=== PATIENT | male | born 1950 | race Caucasian/White ===

== ENCOUNTER 2016-09-22 20:03 | Emergency (ER) | payer BC ==
[~2016-09-22] VITALS: Ht 177.8 cm; Wt 80.0 kg
[~2016-09-22 20:03] MED LIST: FOSI20TA PO; LEVA500T PO; LOVA40TA PO; METR-1 PO
[2016-09-22 20:17] VITALS: BP 117/64; PULSE 77; RESP 16; TEMP 99.1; O2SAT 98
[2016-09-22 20:32] VITALS: BP 117/64; PULSE 77; RESP 18; TEMP 99.1; O2SAT 98
[2016-09-22] MEDS ORDERED: SODIUM CHLORIDE 0.9% FLUSH 10 ML FLUSH IV FLUSH PRN (21:15)
[2016-09-22] MEDS ORDERED: ONDANSETRON HCL 4 MG/2 ML VIAL IVP ONE (21:15)
[2016-09-22 21:24] LABS: AUTOMATED NEUTROPHIL # 6.2 TH/MM3 (1.8-7.7); BASOPHIL % 0.4 % (0.0-2.0); EOSINOPHIL # 0.1 TH/MM3 (0-0.4); EOSINOPHIL % 0.6 % (0.0-4.0); HEMATOCRIT 43.7 % (39.0-51.0); HEMO FLAGS DIFF FINAL; LYMPH % 17.7 % (9.0-44.0); LYMPHOCYTE # 1.5 TH/MM3 (1.0-4.8); MEAN CELL VOLUME 95.9 FL (80.0-100.0); MEAN CORPUSCULAR HGB CONC 33.4 % (32.0-36.0); MONO % 6.8 % (0.0-8.0); NEUT % 74.5 % (16.0-70.0); PLATELET COUNT 200 TH/MM3 (150-450); RED BLOOD COUNT 4.56 MIL/MM3 (4.50-5.90); RED CELL DISTRIBUTION WIDTH 12.4 % (11.6-17.2); WHITE BLOOD COUNT 8.4 TH/MM3 (4.0-11.0)
[2016-09-22 21:26] VITALS: RESP 18; O2SAT 96
--- NOTE | 2016-09-22 21:27 | PD ---
HPI Chief Complaint: GI Complaint Time Seen by Provider: 21:11 Travel History International Travel<30 days: No Contact w/Intl Traveler<30days: No Traveled to known affect area: No History of Present Illness HPI 66 year-old male presents to the emergency department for complaint of right lower quadrant abdominal discomfort. Patient states one week ago developed intermittent sharp stabbing lower abdominal pain that dissipated with mild discomfort throughout the week and prior history of diverticulitis and diverticulosis. Patient denies fever although has developed chills last 24 hours. No melena hematochezia or mucoid stool. Patient denies anorexia. No nausea or vomiting. Patient has history of hypertension and dyslipidemia admits to occasional alcohol use and cigar smoking. Patient denies any chest pain or shortness of breath denies any pleuritic chest pain. Patient states recently return from [place] yesterday. Patient denies dysuria frequency or urgency. No rectal pain with bowel movement. No prior history of pericarditis or prostate issue rates current discomfort 2/10 in intensity when severe 8-9/10 in intensity. Tonsillectomy no previous abdominal surgery. [facility] Past Medical History Narrative Medical Hypertension dyslipidemia diverticulosis diverticulitis tonsillectomy positive tobacco use positive alcohol use; nursing notes reviewed High Cholesterol: Yes Diverticulitis: Yes Hypertension: Yes Inguinal Hernia: Yes (AT 8 YEARS OF [facility]) Tetanus Vaccination: Unknown Influenza Vaccination: No ?: Not Past Surgical History Tonsillectomy: Yes Other Surgery: Yes (HERNIA REPAIR AT AGE 4) Social History Alcohol Use: Yes Tobacco Use: Yes (CIGARS 3-4 WEELY) Substance Use: No Allergies-Medications (Allergen,Severity, Reaction): Coded Allergies: No Known Allergies (Unverified , 09/22/16) Reported Meds & Prescriptions Reported Meds & Active Scripts Active Reported Fosinopril (Fosinopril Sodium) 40 Mg Tab 40 Mg PO DAILY Lovastatin 40 Mg Tab 40 Mg PO DAILY Review of Systems Except as stated in HPI: all other systems reviewed are Neg General / Constitutional: Positive: Chills, No: Fever HENT: No: Congestion Cardiovascular: No: Chest Pain or Discomfort Respiratory: No: Shortness of Breath Gastrointestinal: Positive: Nausea, Abdominal Pain, No: Vomiting, Diarrhea, Hematemesis, Hematochezia, Constipation, Loss of Appetite Genitourinary: No: Dysuria, Flank Pain Musculoskeletal: No: Myalgias, Arthralgias Skin: No Rash Neurologic: No: Weakness Psychiatric: No: Anxiety Hematologic/Lymphatic: No: Lymph Node Enlargement Physical Exam Narrative GENERAL: Well-developed well-nourished male in no acute distress no respiratory distress SKIN: Warm and dry. HEAD: Normocephalic. EYES: No scleral icterus. No injection or drainage. NECK: Supple, trachea midline. No JVD or lymphadenopathy. CARDIOVASCULAR: Regular rate and rhythm without murmurs, gallops, or rubs. RESPIRATORY: Breath sounds equal bilaterally. No accessory muscle use. GASTROINTESTINAL: Abdomen soft, localized right lower quadrant tenderness to palpation without guarding or rebound, nondistended. No palpable pulsatile mass. MUSCULOSKELETAL: No cyanosis, or edema. Radial pulses 2+ to palpation bilateral dorsalis pedis pulses and posterior tibialis pulses 2+ to palpation. BACK: Nontender without obvious deformity. No CVA tenderness. Data Data Last Documented VS Vital Signs Date Time Temp Pulse Resp B/P Pulse Ox O2 Delivery O2 Flow Rate FiO2 09/22/16 22:33 64 18 115/66 98 Room Air 09/22/16 20:32 99.1 Orders Complete Blood Count With Diff (09/22/16 21:11) Comprehensive Metabolic Panel (09/22/16 21:11) Lipase (09/22/16 21:11) Prothrombin Time / Inr (Pt) (09/22/16 21:11) Act Partial Throm Time (Ptt) (09/22/16 21:11) Urinalysis - C+S If Indicated (09/22/16 21:11) Ct Abd/Pel W Iv Contrast(Rout) (09/22/16 21:11) Iv Access Insert/Monitor (09/22/16 21:11) Ecg Monitoring (09/22/16 21:11) Oximetry (09/22/16 21:11) Ondansetron Inj (Zofran Inj) (09/22/16 21:15) Sodium Chloride 0.9% Flush (Ns Flush) (09/22/16 21:15) NPO (09/22/16 21:11) Iohexol 350 Inj (Omnipaque 350 Inj) (09/22/16 22:40) Labs Laboratory Tests Test 09/22/16 09/22/16 20:40 22:05 White Blood Count 8.4 TH/MM3 Red Blood Count 4.56 MIL/MM3 Hemoglobin 14.6 GM/DL Hematocrit 43.7 % Mean Corpuscular Volume 95.9 FL Mean Corpuscular Hemoglobin 32.0 PG Mean Corpuscular Hemoglobin 33.4 % Concent Red Cell Distribution Width 12.4 % Platelet Count 200 TH/MM3 Mean Platelet Volume 9.5 FL Neutrophils (%) (Auto) 74.5 % Lymphocytes (%) (Auto) 17.7 % Monocytes (%) (Auto) 6.8 % Eosinophils (%) (Auto) 0.6 % Basophils (%) (Auto) 0.4 % Neutrophils # (Auto) 6.2 TH/MM3 Lymphocytes # (Auto) 1.5 TH/MM3 Monocytes # (Auto) 0.6 TH/MM3 Eosinophils # (Auto) 0.1 TH/MM3 Basophils # (Auto) 0.0 TH/MM3 CBC Comment DIFF FINAL Differential Comment Prothrombin Time 10.8 SEC Prothromb Time International 1.0 RATIO Ratio Activated Partial 28.3 SEC Thromboplast Time Sodium Level 138 MEQ/L Potassium Level 3.5 MEQ/L Chloride Level 102 MEQ/L Carbon Dioxide Level 31.1 MEQ/L Anion Gap 5 MEQ/L Blood Urea Nitrogen 24 MG/DL Creatinine 1.10 MG/DL Estimat Glomerular Filtration 67 ML/MIN Rate Random Glucose 125 MG/DL Calcium Level 9.5 MG/DL Total Bilirubin 1.1 MG/DL Aspartate Amino Transf 20 U/L (AST/SGOT) Alanine Aminotransferase 30 U/L (ALT/SGPT) Alkaline Phosphatase 81 U/L Total Protein 7.2 GM/DL Albumin 3.7 GM/DL Lipase 185 U/L Urine Color YELLOW Urine Turbidity CLEAR Urine pH 5.5 Urine Specific [place] 1.008 Urine Protein NEG mg/dL Urine Glucose (UA) NEG mg/dL Urine Ketones NEG mg/dL Urine Occult Blood TRACE Urine Nitrite NEG Urine Bilirubin NEG Urine Leukocyte Esterase NEG Urine RBC 0-3 /hpf Urine Squamous Epithelial 0-5 /hpf Cells Microscopic Urinalysis Comment CULT NOT INDICATED MDM Medical Decision Making Medical Screen Exam Complete: Yes Emergency Medical Condition: Yes Medical Record Reviewed: Yes Interpretation(s) Last Impressions Abdomen/Pelvis CT 09/22/161 Signed Impressions: Service Date/Time: Thursday, September 22, 2016 22:17 - CONCLUSION: 1. Acute sigmoid diverticulitis to the right of midline without abscess, obstruction, free fluid or free air. 2. Large 2.7 cm calcified gallstone. Duc Tam MD CBC & BMP Diagram 09/22/16 20:40 Vital Signs Date Time Temp Pulse Resp B/P Pulse Ox O2 Delivery O2 Flow Rate FiO2 09/22/16 22:33 64 18 115/66 98 Room Air 09/22/16 21:26 18 96 Room Air 09/22/16 20:32 99.1 77 18 117/64 98 Room Air 09/22/16 20:32 18 09/22/16 20:17 99.1 77 16 117/64 98 Differential Diagnosis Abdominal pain, diverticulitis, colitis, appendicitis, UTI, biliary colic, obstructive uropathy, abdominal aortic aneurysm, musculoskeletal pain Narrative Course IV access obtained specimens collected and sent for resulting no request for pain medication at this time Patient resting comfortably waiting for CT results and lab values normal range CT consistent with sigmoid diverticulitis without abscess perforation or other acute findings Patient given Flagyl 500 mg IV piggyback and Levaquin 500 mg by mouth Patient stable for outpatient management and follow-up with primary care provider Diagnosis Primary Impression: Diverticulitis Qualified Code: K57.32 - Diverticulitis of large intestine without perforation or abscess without bleeding Referrals: Primary Care Physician call for appointment Patient Instructions: General Instructions Additional Instructions: Increase fluid hydration Gradually add dietary fiber Take acetaminophen/Tylenol every 4 hours as needed for fever 100.4F or greater or minor pain Take ibuprofen/Advil/Motrin 600 mg as often as every 6-8 hours as needed for pain associated inflammation or for fever 100.4F or greater Complete course of antibiotic as prescribed Follow-up with primary care provider call office in a.m. to schedule follow-up appointment Return to the emergency department for any concerns such as fever vomiting increased pain or change in condition Med/Other Pt SpecificInfo: Prescription(s) given Scripts Metronidazole (Flagyl)500 Mg [id number] Mg PO TID 10 Days Ref 0 Prov:Alicia Castro MD 09/22/16 Ciprofloxacin (Cipro)500 Mg [id number] Mg PO BID 7 Days Ref 0 Prov:Alicia Castro MD 09/22/16 Disposition: DISCHARGE HOME Condition: Stable Alicia Castro MD Sep 22, 2016 21:27
[2016-09-22] MEDS ORDERED: FOSI40TA PO (21:35)
[2016-09-22] MEDS ORDERED: LOVA40TA PO (21:35)
[2016-09-22 21:42] LABS: CHLORIDE 102 MEQ/L (98-107); POTASSIUM 3.5 MEQ/L (3.5-5.1); SODIUM (NA) 138 MEQ/L (136-145)
[2016-09-22 21:46] LABS: ANION GAP 5 MEQ/L (5-15); BICARBONATE 31.1 MEQ/L (21.0-32.0); BLOOD UREA NITROGEN 24 MG/DL (7-18)
[2016-09-22 21:47] LABS: APTT (PATIENT) 28.3 SEC (24.3-30.1); PROTHROMBIN TIME - PATIENT 10.8 SEC (9.8-11.6)
[2016-09-22 21:49] LABS: ALT (GPT) 30 U/L (12-78); AST (GOT) 20 U/L (15-37); GLOMERULAR FILTRATION RATE 67 ML/MIN (>89)
[2016-09-22 21:50] LABS: TOTAL BILIRUBIN ADULT 1.1 MG/DL (0.2-1.0)
[2016-09-22 21:51] LABS: ALKALINE PHOSPHATASE 81 U/L (45-117)
[2016-09-22 22:23] LABS: BLOOD, URINE TRACE (NEG); GLUCOSE,URINE NEG (NEG); KETONE, URINE NEG (NEG); NITRITE,URINE NEG (NEG); PH, URINE 5.5 (5.0-8.5)
[2016-09-22 22:33] VITALS: BP 115/66; PULSE 64; RESP 18; O2SAT 98
[2016-09-22 22:36] LABS: URINE COLOR YELLOW (YELLW/STRAW)
[2016-09-22 22:37] LABS: COMMENT (UR) CULT NOT INDICATED; CULTURE IF INDICATED CULT NOT INDICATED; RBC, URINE 0-3 /hpf (0-3); SQUAMOUS EPITHELIAL CELL URINE 0-5 /hpf (0-5)
[2016-09-22] MEDS ORDERED: IOHEXOL 350 MG/ML 10 ML VIAL (for RAD DIAG) IV ONE (22:40)
--- NOTE | 2016-09-22 22:47 | RADRPT ---
EXAM DATE/TIME: 09/22/2016 22:17 [facility] COMPARISON: No previous studies available for comparison. INDICATIONS : Sharp lower abdominal pain. IV CONTRAST: 90 cc Omnipaque 350 (iohexol) IV ORAL CONTRAST: No oral contrast ingested. RADIATION DOSE: 10.36 CTDIvol (mGy) MEDICAL HISTORY : Hypertension. SURGICAL HISTORY : None. ENCOUNTER: Initial ACUITY: 1 day PAIN SCALE: 5/10 LOCATION: Bilateral lower quadrant TECHNIQUE: Volumetric scanning of the abdomen and pelvis was performed. Using automated exposure control and ad justment of the mA and/or kV according to patient size, radiation dose was kept as low as reasonably achievable to obtain optimal diagnostic quality images. DICOM format image data is available electro nically for review and comparison. FINDINGS: There is an approximately 5 cm segment of sigmoid colon on the right side that demonstrates mural thi ckening and perisigmoid inflammatory change. There are also diverticula characteristic of an acute di verticulitis. There is no abscess, free fluid or free air. No obstruction. Lung bases clear. No acute findings in the liver, spleen, adrenals, kidneys or pancreas. Large calcif ied 2.7 cm gallstone without ductal dilatation. No pelvic mass or free fluid. CONCLUSION: 1. Acute sigmoid diverticulitis to the right of midline without abscess, obstruction, free fluid or f ree air. 2. Large 2.7 cm calcified gallstone. Duc Tam MD on September 22, 2016 at 22:40 Board Certified Radiologist. This report was verified electronically.
[2016-09-22] MEDS ORDERED: CIPR-9 PO (23:13)
[2016-09-22] MEDS ORDERED: METR-1 PO (23:13)
[2016-09-22] MEDS ORDERED: LEVOFLOXACIN 500 MG TAB PO ONE (23:15)
[2016-09-22] MEDS ORDERED: metroNIDAZOLE 500 MG INJ 100 ML IV ONE (23:15)
[2016-09-23 00:21] VITALS: BP 112/69; PULSE 59; RESP 18; O2SAT 97
== END 2016-09-23 00:45 | disposition home or self-care (01) ==
LOC: PHED 20:03
DX: K57.32 Diverticulitis of large intestine without perforation or abscess without bleeding (principal); E78.5 Hyperlipidemia, unspecified; I10 Essential (primary) hypertension; Z72.0 Tobacco use
CPT/HCPCS: 74177; 80053; 81001; 83690; 85025; 85610; 85730; 96374; 99285; Q9967